=== PATIENT | male | born 1985 | race African-American/Black ===

== ENCOUNTER 2016-10-21 07:44 | Emergency (ER) | payer SELFPAY ==
[~2016-10-21] VITALS: Ht 182.9 cm; Wt 72.7 kg
[2016-10-21] MEDS ORDERED: HYDROCODONE/ACETAMINOPHEN 5-325 MG TABLET PO ONE (09:00)
[2016-10-21] MEDS ORDERED: LIDOCAINE HCL BUFFERED 1% W/EPI 1:100,000 20 ML VIAL INJ ONE (09:00)
[2016-10-21] MEDS ORDERED: POVIDONE-IODINE 10% 120 ML SOLUTION TP ONE (09:00)
[2016-10-21 11:02] VITALS: BP 133/74
== END 2016-10-21 11:11 | disposition home or self-care (01) ==
LOC: EMS 07:45
DX: L05.01 Pilonidal cyst with abscess (principal); F17.210 Nicotine dependence, cigarettes, uncomplicated
CPT/HCPCS: 10080; 99283; J3490